=== PATIENT | male | born 1950 | race Caucasian/White ===

== ENCOUNTER → 2024-02-12 07:39 | Outpatient (REF) | payer MEDICARE, OTHER, SELFPAY | LOC: RAD 07:39 | PROVIDERS: ATTENDING PHYSICIAN Surgery Vascular Surgery; FAMILY PHYSICIAN Family Medicine | DX: I65.21 Occlusion and stenosis of right carotid artery (principal) | CPT/HCPCS: 93880 ==

== ENCOUNTER → 2025-02-04 08:30 | Outpatient (REF) | payer MEDICARE, OTHER, SELFPAY | LOC: RAD 08:30 | PROVIDERS: ATTENDING PHYSICIAN Surgery Vascular Surgery; FAMILY PHYSICIAN Family Medicine | DX: I65.21 Occlusion and stenosis of right carotid artery (principal) | CPT/HCPCS: 93880 ==